=== PATIENT | male | born 1965 | race Caucasian/White ===

== ENCOUNTER 2017-10-09 03:18 | Inpatient (IN) | payer OTHER ==
[~2017-10-09] VITALS: Ht 177.8 cm; Wt 84.3 kg
[2017-10-09 03:48] LABS: HEMATOCRIT 44.3 % (38.0-50.0); HEMOGLOBIN 16.5 G/DL (12.5-16.6); MCH 35.2 PG (29.0-34.0); MCHC 37.2 G/DL (30.0-36.0); MCV 94.5 FL (86-99); NRBC (%) 0.4 /100 WBC (0-0); PLATELET COUNT 154 K/uL (156-360); RBC DIS.WIDTH-CV 14.7 % (11.8-14.6); RBC DIS.WIDTH-SD 49.8 % (39-53); RED BLOOD COUNT 4.69 M/uL (4.00-5.50); WHITE BLOOD COUNT 5.7 K/uL (4.1-10.2)
[2017-10-09 04:09] LABS: LIPASE 194 U/L (1.0-51.0)
[2017-10-09 04:10] LABS: TROP-I INTERPRETATION NEGATIVE; TROPONIN-I 0.01 ng/mL (0.0-0.30)
[2017-10-09 04:18] LABS: SERUM ETHYL ALCOHOL < 10 mg/dL
[2017-10-09 04:48] LABS: ALBUMIN 4.3 g/dL (3.2-4.8); CHLORIDE 86 mEq/L (99-109); POTASSIUM 4.2 mEq/L (3.7-5.4)
[2017-10-09 04:49] LABS: SODIUM 133 mEq/L (136-147)
[2017-10-09 04:51] LABS: GLUCOSE 120 mg/dL (70-99); TOTAL PROTEIN 7.6 g/dL (6.4-8.3)
[2017-10-09 04:53] LABS: TOTAL BILIRUBIN 0.8 mg/dL (0.0-1.0)
[2017-10-09 04:54] LABS: ALKALINE PHOSPHATASE 70 IU/L (3-129); CREATININE 1.9 mg/dL (0.6-1.3); GFR ESTIMATE (CALCULATED) 40 mL/min/ (58.99-99999)
[2017-10-09 04:56] LABS: AST (GOT) 21 IU/L (2-34); UREA NITROGEN (BUN) 56 mg/dL (9-23)
[2017-10-09 04:57] LABS: ALT (GPT) 16 IU/L (3-49)
[2017-10-09 06:48] LABS: DIRECT BILIRUBIN 0.4 mg/dL (0.0-0.3)
[2017-10-09 07:50] LABS: CARBON DIOXIDE (BICARBONATE) 22.2 MEQ/L (20-31)
[2017-10-09] MEDS ORDERED: ADVIL LIQUI-GE200 MG PO (07:53)
[2017-10-09] MEDS ORDERED: TUMS500 MG PO (07:53)
[2017-10-09 08:01] LABS: CHLORIDE 94 mEq/L (99-109); POTASSIUM 4.3 mEq/L (3.7-5.4); SODIUM 134 mEq/L (136-147)
[2017-10-09 08:03] LABS: GLUCOSE 103 mg/dL (70-99)
[2017-10-09 08:07] LABS: CREATININE 1.6 mg/dL (0.6-1.3); GFR ESTIMATE (CALCULATED) 49 mL/min/ (58.99-99999); UREA NITROGEN (BUN) 52 mg/dL (9-23)
[2017-10-09 08:18] LABS: APPEARANCE SL.HAZY ((CLEAR)); BILIRUBIN NEGATIVE; BLOOD SMALL; COLOR YELLOW ((YELLOW)); GLUCOSE (STRIP) 50; KETONES 80; LEUKOCYTES NEGATIVE; NITRITE NEGATIVE; PROTEIN (STRIP) 100; SPECIFIC GRAVITY 1.025 (1.000-1.030)
[2017-10-09 08:39] LABS: BACTERIA RARE /HPF; EPITHELIAL CELLS RARE /HPF; MUCUS 1+ /LPF; RED BLOOD CELLS 0-5 /HPF (0-5); UCUL ADDED? NO; WHITE BLOOD CELLS 0-5 /HPF (0-5)
[2017-10-09 08:40] LABS: HYALINE CASTS 15-20 /LPF
[2017-10-09 08:56] LABS: CREATINE KINASE 34 IU/L (1-294); TOTAL CK 34 IU/L (1-294)
[2017-10-09 09:02] LABS: CK-MB 1.2 ng/mL (0.0-4.9); CKMB RELATIVE INDEX 3.5 (0.0-3.9)
[2017-10-09 09:40] VITALS: BP 121/76
[2017-10-09 09:41] LABS: MAGNESIUM 2.1 mg/dL (1.3-2.7)
[2017-10-09 10:41] LABS: URINE OSMOLALITY 833 MOSM/KG (300-1100)
[2017-10-09 11:15] VITALS: BP 140/79
[2017-10-09 11:27] LABS: CHLORIDE 93 MEQ/L (99-109); CREATININE 1.2 MG/DL (0.6-1.3); GFR ESTIMATE (CALCULATED) > 59 mL/min/ (58.99-99999); GLUCOSE 89 mg/dL (70-99); SODIUM 136 MEQ/L (136-147); UREA NITROGEN (BUN) 48 mg/dL (9-23)
[2017-10-09 11:38] LABS: POTASSIUM 3.1 MEQ/L (3.7-5.4)
[2017-10-09 13:49] LABS: BENZODIAZEPINES, URINE SCREEN Negative (200 ng/mL)
[2017-10-09 15:28] VITALS: BP 139/70
[2017-10-09 19:37] VITALS: BP 129/82
[2017-10-10 00:16] VITALS: BP 140/81
[2017-10-10 04:20] VITALS: BP 125/81
[2017-10-10 06:06] LABS: HEMATOCRIT 33.1 % (38.0-50.0); MCH 34.1 PG (29.0-34.0); MCV 97.4 FL (86-99); RBC DIS.WIDTH-CV 13.9 % (11.8-14.6); RBC DIS.WIDTH-SD 49.5 % (39-53); WHITE BLOOD COUNT 4.3 K/uL (4.1-10.2)
[2017-10-10 06:12] LABS: CHLORIDE 99 MEQ/L (99-109); CREATININE 0.8 MG/DL (0.6-1.3); GFR ESTIMATE (CALCULATED) > 59 mL/min/ (58.99-99999); GLUCOSE 93 mg/dL (70-99); POTASSIUM 2.7 MEQ/L (3.7-5.4); SODIUM 134 MEQ/L (136-147); UREA NITROGEN (BUN) 25 mg/dL (9-23)
[2017-10-10 06:28] LABS: HEMOGLOBIN 11.6 G/DL (12.5-16.6)
[2017-10-10 07:20] LABS: PLAT.SUFFICIENCY DECREASED
[2017-10-10 07:24] LABS: PLATELET COUNT 82 K/uL (156-360)
[2017-10-10 08:28] LABS: MAGNESIUM 1.7 mg/dl (1.3-2.7)
[2017-10-10 11:26] VITALS: BP 117/76
[2017-10-10 15:20] VITALS: BP 138/71
[2017-10-10 19:39] VITALS: BP 134/89
[2017-10-11] VITALS (7 sets, daily range): BP systolic 118–139; BP diastolic 68–88
[2017-10-11 03:56] LABS: C DIFF TOXIN POSITIVE (NEGATIVE)
[2017-10-11 05:02] LABS: HEMOGLOBIN 11.3 G/DL (12.5-16.6); MCH 34.9 PG (29.0-34.0); MCHC 36.5 G/DL (30.0-36.0); MCV 95.7 FL (86-99); PLATELET COUNT 75 K/uL (156-360); RBC DIS.WIDTH-CV 13.5 % (11.8-14.6); RBC DIS.WIDTH-SD 47.6 % (39-53); RED BLOOD COUNT 3.24 M/uL (4.00-5.50); WHITE BLOOD COUNT 4.2 K/uL (4.1-10.2)
[2017-10-11 05:16] LABS: CHLORIDE 99 mEq/L (99-109); POTASSIUM 2.9 mEq/L (3.7-5.4); SODIUM 133 mEq/L (136-147)
[2017-10-11 05:17] LABS: MAGNESIUM 1.5 mg/dL (1.3-2.7)
[2017-10-11 05:18] LABS: GLUCOSE 125 mg/dL (70-99)
[2017-10-11 05:22] LABS: CREATININE 0.7 mg/dL (0.6-1.3); GFR ESTIMATE (CALCULATED) > 59 mL/min/ (58.99-99999)
[2017-10-11 05:23] LABS: UREA NITROGEN (BUN) 10 mg/dL (9-23)
[2017-10-12 07:34] VITALS: BP 131/70
[2017-10-12 08:53] LABS: HEMOGLOBIN 11.9 G/DL (12.5-16.6); MCH 33.3 PG (29.0-34.0); PLATELET COUNT 93 K/uL (156-360); RBC DIS.WIDTH-CV 14.2 % (11.8-14.6); RBC DIS.WIDTH-SD 51.1 % (39-53); RED BLOOD COUNT 3.57 M/uL (4.00-5.50); WHITE BLOOD COUNT 4.1 K/uL (4.1-10.2)
[2017-10-12 09:22] LABS: CHLORIDE 98 MEQ/L (99-109); CREATININE 0.7 MG/DL (0.6-1.3); GFR ESTIMATE (CALCULATED) > 59 mL/min/ (58.99-99999); GLUCOSE 144 mg/dL (70-99); PHOSPHORUS 1.3 mg/dL (2.5-4.9); SODIUM 134 MEQ/L (136-147); UREA NITROGEN (BUN) 6 mg/dL (9-23)
[2017-10-12 09:23] LABS: MAGNESIUM 1.4 mg/dl (1.3-2.7)
[2017-10-12 12:29] VITALS: BP 130/73
[2017-10-12 15:39] VITALS: BP 133/76
[2017-10-12 19:50] VITALS: BP 135/89
[2017-10-13 00:14] VITALS: BP 130/74
[2017-10-13 03:31] VITALS: BP 132/72
[2017-10-13 07:09] LABS: HEMATOCRIT 30.4 % (38.0-50.0); HEMOGLOBIN 10.6 G/DL (12.5-16.6); MCH 34.4 PG (29.0-34.0); MCHC 34.9 G/DL (30.0-36.0); MCV 98.7 FL (86-99); PLATELET COUNT 94 K/uL (156-360); RBC DIS.WIDTH-CV 14.4 % (11.8-14.6); RBC DIS.WIDTH-SD 52.1 % (39-53); RED BLOOD COUNT 3.08 M/uL (4.00-5.50); WHITE BLOOD COUNT 4.6 K/uL (4.1-10.2)
[2017-10-13 07:25] LABS: CHLORIDE 99 MEQ/L (99-109); CREATININE 0.6 MG/DL (0.6-1.3); GFR ESTIMATE (CALCULATED) > 59 mL/min/ (58.99-99999); GLUCOSE 115 mg/dL (70-99); POTASSIUM 3.4 MEQ/L (3.7-5.4); SODIUM 134 MEQ/L (136-147); UREA NITROGEN (BUN) 6 mg/dL (9-23)
[2017-10-13 07:27] LABS: PHOSPHORUS 2.3 mg/dL (2.5-4.9)
[2017-10-13 07:30] VITALS: BP 129/75
[2017-10-13 09:17] LABS: MAGNESIUM 1.5 mg/dl (1.3-2.7)
[2017-10-13 11:32] VITALS: BP 130/76
[2017-10-13] MEDS ORDERED: NICOTINE PATCH1 EAC2 TD (14:22)
[2017-10-13] MEDS ORDERED: THORAZINE25 MG PO (14:22)
[2017-10-13] MEDS ORDERED: VANCOMYCIN HCL125 MG PO (14:22)
[2017-10-13] MEDS ORDERED: OMEPRAZOLE20 MG PO (14:25)
[2017-10-13] MEDS ORDERED: VITALEE TABLET0.4 MG PO (14:27)
[2017-10-13 15:00] VITALS: BP 138/91
== END 2017-10-13 17:22 | disposition home or self-care (01) | DRG 683 ==
LOC: EME 03:18 → EDOF 08:13 → 4EAST 08:13 → 5EAST 08:13 → ENRESERV 08:17 → 4EAST 09:41 → ENRESERV 10-11 21:53 → 5EAST 10-11 23:43
PROVIDERS: Emergency Medicine; Hospitalist; Internal Medicine; Physician Assistant
PROC: HZ2ZZZZ Detoxification Services for Substance Abuse Treatment (ICD-10-PCS; principal; 2017-10-09)
DX: N17.9 Acute kidney failure, unspecified (principal); E87.2 Acidosis; A04.71 Enterocolitis due to Clostridium difficile, recurrent; E87.1 Hypo-osmolality and hyponatremia; K92.0 Hematemesis; E86.0 Dehydration; D69.59 Other secondary thrombocytopenia; E83.39 Other disorders of phosphorus metabolism; E83.42 Hypomagnesemia; E87.6 Hypokalemia; Y90.0 Blood alcohol level of less than 20 mg/100 ml; F10.20 Alcohol dependence, uncomplicated; F17.210 Nicotine dependence, cigarettes, uncomplicated; I12.9 Hypertensive chronic kidney disease with stage 1 through stage 4 chronic kidney disease, or unspecified chronic kidney disease; N18.9 Chronic kidney disease, unspecified; K59.00 Constipation, unspecified; K76.0 Fatty (change of) liver, not elsewhere classified; K70.10 Alcoholic hepatitis without ascites; R63.0 Anorexia; J43.9 Emphysema, unspecified; R16.0 Hepatomegaly, not elsewhere classified; Z56.0 Unemployment, unspecified; Z80.3 Family history of malignant neoplasm of breast
CPT/HCPCS: 71046; 71250; 74176; 80048; 80048 91; 80053; 80306 90; 81003; 82248; 82550 91; 82553; 82803; 83605; 83690; 83735; 83874 90; 83930; 83935; 84100; 84484; 85027; 86850; 86900; 86901; 87040; 87493; 93005; 99281; 99285; G0480; J3411; J3480; J7030; J7120; Q0161; S0028; S0030

== ENCOUNTER 2017-11-15 17:56 | Emergency (ER) | payer OTHER ==
[~2017-11-15] VITALS: Ht 180.3 cm; Wt 79.6 kg
[~2017-11-15 17:56] MED LIST: ADVIL LIQUI-GE200 MG PO; NICOTINE PATCH1 EAC2 TD; OMEPRAZOLE20 MG PO; THORAZINE25 MG PO; TUMS500 MG PO; VANCOMYCIN HCL125 MG PO; VITALEE TABLET0.4 MG PO
[2017-11-15] MEDS ORDERED: ULTRAM50 MG PO (23:45)
[2017-11-16] VITALS: BP 179/87
== END 2017-11-16 00:18 | disposition home or self-care (01) ==
LOC: EXP 17:56 → EME 17:56 → EXP 11-16 00:18
DX: M54.5 Low back pain (principal); M51.36 Other intervertebral disc degeneration, lumbar region; W01.0XXA Fall on same level from slipping, tripping and stumbling without subsequent striking against object, initial encounter; R20.0 Anesthesia of skin; F17.200 Nicotine dependence, unspecified, uncomplicated
CPT/HCPCS: 72131; 99281; 99283